=== PATIENT | female | born 1995 | race Caucasian/White ===

== ENCOUNTER 2017-01-03 11:32 | Emergency (ER) | payer BC ==
[~2017-01-03] VITALS: Ht 165.1 cm; Wt 67.3 kg
[2017-01-03 11:34] VITALS: BP 126/62; TEMP 97.8
[2017-01-03 12:30] VITALS: PULSE 76
[2017-01-03 14:02] LABS: CHLAMYDIA/TRACH by PCR Female Not Detected; NEISSERIA GON by PCR Female Not Detected
== END 2017-01-03 12:33 | disposition home or self-care (01) ==
LOC: COL.ER 11:32
PROVIDERS: Physician Assistant
DX: R10.2 Pelvic and perineal pain (principal); Z20.2 Contact with and (suspected) exposure to infections with a predominantly sexual mode of transmission; N89.8 Other specified noninflammatory disorders of vagina
CPT/HCPCS: J0696

== ENCOUNTER 2017-04-03 21:18 | Emergency (ER) | payer BC ==
[~2017-04-03] VITALS: Ht 165.1 cm; Wt 72.7 kg
[2017-04-03 21:22] VITALS: BP 159/76; TEMP 98.5
[2017-04-03] MEDS ORDERED: ZOFRAN 4MG T4 MG/TAB PO (23:49)
[2017-04-04] VITALS: PULSE 76
== END 2017-04-04 00:01 | disposition home or self-care (01) ==
LOC: COL.ER 21:18
DX: S06.9X9A Unspecified intracranial injury with loss of consciousness of unspecified duration, initial encounter (principal); Y04.0XXA Assault by unarmed brawl or fight, initial encounter; Y92.009 Unspecified place in unspecified non-institutional (private) residence as the place of occurrence of the external cause; R40.2142 Coma scale, eyes open, spontaneous, at arrival to emergency department; R40.2362 Coma scale, best motor response, obeys commands, at arrival to emergency department; R40.2252 Coma scale, best verbal response, oriented, at arrival to emergency department

== ENCOUNTER → 2017-08-28 | Outpatient (CLI) | payer BC ==
[~2017-08-28] MED LIST: ZOFRAN 4MG T4 MG/TAB PO
[2017-08-28 16:54] LABS: HIV 1/2 Antibodies Non-Reactive; HIV-1p24 Antigen Non-Reactive
== END ==
LOC: COL.LAB 14:50
PROVIDERS: Family Medicine
DX: Z11.3 Encounter for screening for infections with a predominantly sexual mode of transmission (principal); N89.8 Other specified noninflammatory disorders of vagina

== ENCOUNTER 2018-02-06 14:10 | Emergency (ER) | payer BC ==
[~2018-02-06] VITALS: Ht 162.6 cm; Wt 72.7 kg
[2018-02-06 14:18] VITALS: BP 136/65; PULSE 84; TEMP 98.1
== END 2018-02-06 14:57 | disposition left against medical advice (07) ==
LOC: COL.ER 14:10
DX: Z20.2 Contact with and (suspected) exposure to infections with a predominantly sexual mode of transmission (principal)

== ENCOUNTER 2018-03-18 12:53 | Emergency (ER) | payer BC ==
[~2018-03-18] VITALS: Ht 167.6 cm; Wt 69.1 kg
[2018-03-18 13:02] VITALS: BP 128/77
[2018-03-18 13:18] LABS: COLLECTION METHOD CLEAN CATCH
[2018-03-18 13:26] LABS: MUCOUS Present /lpf; PH 5 (5-8); URINE APPEARANCE Hazy; URINE BACTERIA None Seen /hpf; URINE BILIRUBIN Negative (NEGATIVE); URINE BLOOD Negative (NEGATIVE); URINE COLOR Yellow; URINE GLUCOSE Negative (NEGATIVE); URINE KETONE Negative (NEGATIVE); URINE LEUKOCYTE ESTERASE Negative (NEGATIVE); URINE NITRATE Negative (NEGATIVE); URINE PROTEIN(semi-quant) Negative (NEGATIVE); URINE RBC 0-2 /hpf; URINE UROBILINOGEN Negative (NEGATIVE)
[2018-03-18] MEDS ORDERED: FLAGYL500 MG PO (13:56)
[2018-03-18 14:15] VITALS: PULSE 72; TEMP 97.8
== END 2018-03-18 14:15 | disposition home or self-care (01) ==
LOC: COL.ER 12:53
PROVIDERS: Nurse Practitioner
DX: N76.0 Acute vaginitis (principal); Z98.51 Tubal ligation status; F17.210 Nicotine dependence, cigarettes, uncomplicated
CPT/HCPCS: J0696; J1885; J2360

== ENCOUNTER 2018-04-28 07:03 | Emergency (ER) | payer BC ==
[~2018-04-28] VITALS: Ht 167.6 cm; Wt 63.6 kg
[~2018-04-28 07:03] MED LIST changes: +FLAGYL500 MG PO
[2018-04-28 07:10] VITALS: BP 129/73; TEMP 98.7
[2018-04-28 07:56] LABS: BASO % 0.4 % (0.0-2.0); EOS % 0.1 % (0-4.0); GRAN # 6.2 (1.4-6.5); GRAN % 74.8 % (42.2-75.2); HEMOGLOBIN 13.3 g/dl (12.5-16.0); LYMPH # 1.6 (1.2-3.4); LYMPH % 19.6 % (20.0-51.0); MEAN CELL VOLUME 90 fl (80.0-100.0); MEAN CORPUSCULAR HEMOGLOBIN 31 pg (27.0-31.0); MEAN CORPUSCULAR HGB CONC 35 g/dl (33.0-37.0); MEAN PLATELET VOLUME 9.7 fl (7.4-10.4); MONO # 0.4 (0.1-0.6); MONO % 4.9 % (1.7-9.3); PLATELET COUNT 242 K/mm3 (130-400); RED BLOOD COUNT 4.24 M/mm3 (4.10-5.30); REDCELL DISTRIBUTION WIDTH-CV 11.9 % (11.5-14.5)
[2018-04-28 08:16] LABS: ALANINE AMINOTRANSFERASE 32 U/L (9-52); ALBUMIN 4.4 gm/dL (3.5-5.0); ALKALINE PHOSPHATASE 78 U/L (50-136); ANION GAP 16 mmol/L (7-16); AST,SGOT 22 U/L (15-37); BILIRUBIN,TOTAL 0.9 mg/dL (0.0-1.0); BLOOD UREA NITROGEN 9 mg/dL (7-17); C-REACTIVE PROTEIN < 0.5 mg/dL (0.0-0.9); CALCIUM 9.2 mg/dL (8.4-10.2); CARBON DIOXIDE 24 mmol/L (22-30); CHLORIDE 102 mmol/L (98-107); GLUCOSE 103 mg/dL (74-106); POTASSIUM 3.5 mmol/L (3.4-5.0); SODIUM 142 mmol/L (137-145); TOTAL PROTEIN 7.3 gm/dL (6.4-8.2)
[2018-04-28 10:02] VITALS: PULSE 96
== END 2018-04-28 10:06 | disposition home or self-care (01) ==
LOC: COL.ER 07:03
PROVIDERS: Nurse Practitioner
DX: R51 Headache (principal); R19.7 Diarrhea, unspecified; F41.9 Anxiety disorder, unspecified; F32.9 Major depressive disorder, single episode, unspecified; F17.210 Nicotine dependence, cigarettes, uncomplicated; Z98.51 Tubal ligation status
CPT/HCPCS: J0780; J1200; J2765; J7030

== ENCOUNTER 2018-05-03 00:33 | Emergency (ER) | payer BC ==
[~2018-05-03] VITALS: Ht 167.6 cm; Wt 66.8 kg
[2018-05-03 00:44] VITALS: BP 101/69; TEMP 98.5
[2018-05-03 01:24] VITALS: PULSE 68
== END 2018-05-03 01:24 | disposition home or self-care (01) ==
LOC: COL.ER 00:33
DX: R51 Headache (principal); Z98.51 Tubal ligation status; F17.210 Nicotine dependence, cigarettes, uncomplicated

== ENCOUNTER → 2018-11-07 | Outpatient (CLI) | payer BC ==
[2018-11-07 19:07] LABS: HIV 1/2 Antibodies Non-Reactive; HIV-1p24 Antigen Non-Reactive
== END ==
LOC: ZCOL.LAB 16:41
PROVIDERS: Family Medicine
DX: Z11.3 Encounter for screening for infections with a predominantly sexual mode of transmission (principal); N89.8 Other specified noninflammatory disorders of vagina

== ENCOUNTER 2018-11-12 00:13 | Emergency (ER) | payer BC ==
[~2018-11-12] VITALS: Ht 167.6 cm; Wt 63.6 kg
[2018-11-12 00:17] VITALS: BP 137/69; TEMP 98.7
[2018-11-12 00:55] LABS: COLLECTION METHOD CLEAN CATCH
[2018-11-12 01:08] LABS: MUCOUS Present /lpf; PH 5 (5-8); SQUAMOUS EPITHELIAL >50 /hpf; URINE APPEARANCE Cloudy; URINE BACTERIA None Seen /hpf; URINE BILIRUBIN Negative (NEGATIVE); URINE BLOOD Negative (NEGATIVE); URINE COLOR Yellow; URINE GLUCOSE Negative (NEGATIVE); URINE KETONE Negative (NEGATIVE); URINE LEUKOCYTE ESTERASE 3+ (NEGATIVE); URINE NITRATE Negative (NEGATIVE); URINE PROTEIN(semi-quant) Negative (NEGATIVE); URINE RBC None Seen /hpf; URINE UROBILINOGEN Negative (NEGATIVE)
[2018-11-12 01:45] VITALS: PULSE 73
== END 2018-11-12 01:45 | disposition home or self-care (01) ==
LOC: COL.ER 00:13
PROVIDERS: Nurse Practitioner
DX: N76.0 Acute vaginitis (principal); B96.89 Other specified bacterial agents as the cause of diseases classified elsewhere; F32.9 Major depressive disorder, single episode, unspecified; F17.210 Nicotine dependence, cigarettes, uncomplicated; F41.9 Anxiety disorder, unspecified; Z98.51 Tubal ligation status
CPT/HCPCS: J0696

== ENCOUNTER 2019-05-16 13:27 | Emergency (ER) | payer BC ==
[~2019-05-16] VITALS: Ht 167.6 cm; Wt 68.2 kg
[2019-05-16 13:29] VITALS: TEMP 99
[2019-05-16 15:20] LABS: COLLECTION METHOD CLEAN CATCH
[2019-05-16 15:31] LABS: MUCOUS Present /lpf; PH 6 (5-8); URINE APPEARANCE Turbid; URINE BACTERIA None Seen /hpf; URINE BILIRUBIN Negative (NEGATIVE); URINE BLOOD 3+ (NEGATIVE); URINE COLOR Red; URINE GLUCOSE 1+ (NEGATIVE); URINE KETONE Negative (NEGATIVE); URINE LEUKOCYTE ESTERASE Negative (NEGATIVE); URINE NITRATE Negative (NEGATIVE); URINE PROTEIN(semi-quant) 2+ (NEGATIVE); URINE RBC >50 /hpf; URINE UROBILINOGEN Negative (NEGATIVE)
[2019-05-16 16:38] VITALS: BP 140/85; PULSE 82
== END 2019-05-16 16:38 | disposition home or self-care (01) ==
LOC: COL.ER 13:27
PROVIDERS: Nurse Practitioner
DX: Z20.2 Contact with and (suspected) exposure to infections with a predominantly sexual mode of transmission (principal); F32.9 Major depressive disorder, single episode, unspecified; F41.9 Anxiety disorder, unspecified; F17.210 Nicotine dependence, cigarettes, uncomplicated; Z98.51 Tubal ligation status
CPT/HCPCS: J0696

== ENCOUNTER → 2019-07-21 | Outpatient (CLI) | payer BC | LOC: ZCOL.LAB 17:08 | DX: Z11.3 Encounter for screening for infections with a predominantly sexual mode of transmission (principal); N89.8 Other specified noninflammatory disorders of vagina ==

== ENCOUNTER → 2019-09-23 | Outpatient (CLI) | payer BC | LOC: ZCOL.LAB 17:24 | DX: Z11.3 Encounter for screening for infections with a predominantly sexual mode of transmission (principal) ==

== ENCOUNTER 2019-10-16 17:38 | Emergency (ER) | payer BC ==
[2019-10-16 17:48] VITALS: BP 125/66; TEMP 98.2
[2019-10-16] MEDS ORDERED: NORCO 325 MG-51 TAB PO (19:24)
[2019-10-16] MEDS ORDERED: FLEXERIL 1010 MG/TAB PO (19:24)
[2019-10-16 19:38] VITALS: PULSE 80
== END 2019-10-16 19:40 | disposition home or self-care (01) ==
LOC: COL.ER 17:38
DX: M54.5 Low back pain (principal); F17.210 Nicotine dependence, cigarettes, uncomplicated; Z98.51 Tubal ligation status
CPT/HCPCS: J1885; J2360

== ENCOUNTER 2020-04-17 00:04 | Emergency (ER) | payer BC ==
[~2020-04-17] VITALS: Ht 165.1 cm; Wt 70.5 kg
[~2020-04-17 00:04] MED LIST changes: +FLEXERIL 1010 MG/TAB PO; +NORCO 325 MG-51 TAB PO
[2020-04-17 00:11] VITALS: TEMP 97.9
[2020-04-17 01:16] VITALS: BP 114/70; PULSE 76
== END 2020-04-17 01:15 | disposition home or self-care (01) ==
LOC: COL.ER 00:04
DX: S61.012A Laceration without foreign body of left thumb without damage to nail, initial encounter (principal); W26.8XXA Contact with other sharp object(s), not elsewhere classified, initial encounter; Y92.009 Unspecified place in unspecified non-institutional (private) residence as the place of occurrence of the external cause; Y93.G1 Activity, food preparation and clean up

== ENCOUNTER 2021-04-26 10:19 | Emergency (ER) | payer BC ==
[~2021-04-26] VITALS: Ht 167.6 cm; Wt 70.9 kg
[2021-04-26 10:46] VITALS: BP 121/68; TEMP 97.8
[2021-04-26] MEDS ORDERED: NORCO 325 MG-7.1 TAB PO (11:23)
[2021-04-26 11:28] LABS: COLLECTION METHOD CLEAN CATCH
[2021-04-26 11:35] LABS: MUCOUS Present /lpf; PH 5 (5-8); URINE APPEARANCE Clear; URINE BACTERIA None Seen /hpf; URINE BILIRUBIN Negative (NEGATIVE); URINE BLOOD Negative (NEGATIVE); URINE COLOR Yellow; URINE GLUCOSE Negative (NEGATIVE); URINE KETONE Negative (NEGATIVE); URINE LEUKOCYTE ESTERASE Negative (NEGATIVE); URINE NITRATE Negative (NEGATIVE); URINE PROTEIN(semi-quant) Negative (NEGATIVE); URINE RBC 0-2 /hpf; URINE UROBILINOGEN Negative (NEGATIVE)
[2021-04-26] MEDS ORDERED: FLEXERIL 1010 MG/TAB PO (12:11)
[2021-04-26] MEDS ORDERED: LIDODERM 5% PATC1 EA TP (12:11)
[2021-04-26 12:15] VITALS: PULSE 102
== END 2021-04-26 12:15 | disposition home or self-care (01) ==
LOC: COL.ER 10:19
PROVIDERS: Nurse Practitioner
DX: M54.5 Low back pain (principal); F17.210 Nicotine dependence, cigarettes, uncomplicated; Z32.02 Encounter for pregnancy test, result negative